=== PATIENT | female | born 1990 | race African-American/Black ===

== ENCOUNTER 2017-06-08 15:09 | Observation (INO) | payer MEDICAID, OTHER ==
[~2017-06-08] VITALS: Ht 162.6 cm; Wt 140.2 kg
[2017-06-08] MEDS ORDERED: IBUP-2030 PO (15:33)
[2017-06-08] MEDS ORDERED: ACET-2708 PO (15:33)
[2017-06-08] MEDS ORDERED: SODIUM CHLORIDE 0.9% 1,000 ML IV SCH (16:41)
[2017-06-08 17:43] LABS: BASOPHILS % 0.2 % (0.0-2.0); EOSINOPHILS % 0.5 % (0.0-5.0); HEMATOCRIT. 29.9 % (36.0-48.0); HEMOGLOBIN. 9.7 g/dL (12.0-16.0); LYMPHOCYTES % 18.8 % (20.0-50.0); MEAN CORPUSCULAR HEMOGLOBIN 25.8 pg (28.0-32.0); MEAN CORPUSCULAR VOLUME 79.7 fL (81.0-99.0); MEAN PLATELET VOLUME 9.3 fl (7.4-10.4); MONOCYTES % 6.8 % (2.0-8.0); NEUTROPHILS % 73.7 % (40.0-76.0); PLATELET 230 x1000/uL (130-400); RED BLOOD CELL COUNT 3.75 mill/uL (4.2-5.4); RED CELL DISTRIBUTION WIDTH 14.9 % (11.6-14.6)
[2017-06-08 17:50] LABS: CHLORIDE 108 mEq/L (98-107)
[2017-06-08 17:51] LABS: CLARITY URINE CLEAR (CLEAR); COLOR URINE YELLOW (YELLOW); KETONES URINE TRACE (NEGATIVE); LEUKOCYTE ESTERASE URINE NEGATIVE (NEGATIVE); NITRITE URINE NEGATIVE (NEGATIVE); OCCULT BLOOD URINE NEGATIVE (NEGATIVE); PH URINE 7.5 (4.5-8.0); PROTEIN URINE NEGATIVE (NEGATIVE); SPECIFIC GRAVITY URINE 1.028 (1.005-1.030)
[2017-06-08 18:00] LABS: CARBON DIOXIDE 23 mEq/L (21-32)
[2017-06-08 18:01] LABS: *AMPHETAMINES SCREEN URINE NEGATIVE (NEGATIVE); *BARBITURATES SCREEN URINE NEGATIVE (NEGATIVE); *BENZODIAZEPINES SCREEN URINE NEGATIVE (NEGATIVE); *COCAINE SCREEN URINE NEGATIVE (NEGATIVE); CANNABINOID URINE SCREEN NEGATIVE (NEGATIVE); METHADONE URINE SCREEN NEGATIVE (NEGATIVE); OPIATES URINE SCREEN NEGATIVE (NEGATIVE); PHENCYCLIDINE URINE SCREEN NEGATIVE (NEGATIVE)
[2017-06-08 18:07] LABS: D-DIMER 0.49 mg/L FEU (<0.50); PROTHROMBIN TIME 10.4 sec
[2017-06-08] MEDS ORDERED: ACETAMINOPHEN 500MG TABLET PO NR (18:30)
== END 2017-06-08 19:00 | disposition home or self-care (01) ==
LOC: INTOOBSV 15:09 → L&D 15:09
PROVIDERS: ADMIT Specialist; ATTEND Specialist
DX: O26.893 Other specified pregnancy related conditions, third trimester (principal); R10.10 Upper abdominal pain, unspecified; M54.9 Dorsalgia, unspecified; Z3A.34 34 weeks gestation of pregnancy
CPT/HCPCS: 36415; 80053; 80305; 81003; 84550; 85025; 85379; 85384; 85610; 85730; 96360; 99281; G0378; J7030; 96361